=== PATIENT | male | born 1985 | race Caucasian/White ===

== ENCOUNTER 2020-08-11 10:27 | Emergency (ER) | payer OTHER ==
[~2020-08-11] VITALS: Ht 175.3 cm; Wt 136.1 kg
[2020-08-11] MEDS ORDERED: METFORMIN HCL500 M3 PO (10:41)
[2020-08-11] MEDS ORDERED: AMOXIL 875 MG875 M1 PO (10:43)
[2020-08-11 11:14] VITALS: BP 146/85
== END 2020-08-11 11:15 | disposition home or self-care (01) ==
LOC: M.ERS 10:27
DX: K04.7 Periapical abscess without sinus (principal); K02.9 Dental caries, unspecified; E11.9 Type 2 diabetes mellitus without complications; F17.210 Nicotine dependence, cigarettes, uncomplicated

== ENCOUNTER 2020-11-13 18:43 | Emergency (ER) | payer OTHER ==
[~2020-11-13] VITALS: Ht 172.7 cm; Wt 136.1 kg
--- NOTE | ~2020-11-13 | EKG ---
[place] [address] ELECTROCARDIOGRAM REPORT Name: MORALESNASIM E Room: 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
[~2020-11-13 18:43] MED LIST: AMOXIL 875 MG875 M1 PO; METFORMIN HCL500 M3 PO
[2020-11-13 20:00] VITALS: BP 148/72
--- NOTE | 2020-11-14 09:48 | EKG ---
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
== END 2020-11-13 20:00 | disposition home or self-care (01) ==
LOC: M.ERS 18:43
DX: T75.4XXA Electrocution, initial encounter (principal); R07.89 Other chest pain; E11.9 Type 2 diabetes mellitus without complications; J45.909 Unspecified asthma, uncomplicated; X58.XXXA Exposure to other specified factors, initial encounter; Y93.89 Activity, other specified; Y92.89 Other specified places as the place of occurrence of the external cause; Y99.8 Other external cause status

== ENCOUNTER 2021-03-25 14:19 | Emergency (ER) | payer OTHER ==
[~2021-03-25] VITALS: Ht 175.3 cm; Wt 136.1 kg
[2021-03-25 15:58] VITALS: BP 152/81
== END 2021-03-25 15:59 | disposition home or self-care (01) ==
LOC: M.ERS 14:19
DX: Z20.822 Contact with and (suspected) exposure to COVID-19 (principal); E11.9 Type 2 diabetes mellitus without complications; J45.909 Unspecified asthma, uncomplicated; Z79.899 Other long term (current) drug therapy